=== PATIENT | female | born 1950 | race Caucasian/White ===

== ENCOUNTER → 2018-07-12 09:52 | Outpatient (CLI) | payer MEDICARE, BC, SELFPAY ==
--- NOTE | 2018-07-12 09:58 | BI_ITS ---
MAMMOGRAPHY - BILATERAL SCREENING REASON FOR EXAM: Female, 67 years old. Routine annual screening examination. PERTINENT HISTORY: Grandmother with breast cancer. Aunts with breast cancer. History of bilateral breast reduction. TECHNIQUE: Digital bilateral breast alondra (3D mammographic acquisition) in the CC and MLO projections. 2-D mediolateral oblique (MLO) and craniocaudad (CC) views of both breasts were obtained. CAD: Full Field Digital Mammography with Computer Added Detection was performed. COMPARISON: Comparison is made with prior study dated September 02, 2016 and February 04, 2014. FINDINGS: Breast Composition: There are scattered areas of fibroglandular density. There are no dominant masses or suspicious calcifications. Stable appearance of the calcified nodular densities in the retroareolar region of the right breast. Stable appearance of the bilateral axillary lymph nodes. No other significant abnormalities are identified. There has been no significant change since the prior study. BI/SCREENING MAMM (CAD), BILAT IMPRESSION: Stable bilateral screening mammogram. Yearly follow-up mammogram recommended. (A) ASSESSMENT CATEGORY: BIRADS Category 2: Benign. A letter regarding these results will be sent to the patient by the facility within 30 days. Approximately 10% of breast cancers are not detected by mammography. A normal mammogram should not delay biopsy of a clinically suspicious abnormality. [id number] Electronically Signed: Tomer Boone MD at 13:54 EDT Tel [phone], Service support ,
== END ==
PROVIDERS: Family Provider Internal Medicine; PCP Internal Medicine; Referring Provider Obstetrics & Gynecology; Visit Provider Obstetrics & Gynecology
DX: Z12.31 Encounter for screening mammogram for malignant neoplasm of breast (principal)
CPT/HCPCS: 77063; 77067

== ENCOUNTER 2019-02-04 16:30 | Outpatient (RCR) | payer MEDICARE, BC, SELFPAY ==
--- NOTE | 2019-01-28 11:32 | HP.PTEVAL ---
Patient's Visit Information CRISTOBAL MCCLAIN is a 68 year old F referred to Physical Therapy by Zane Knutson with a diagnosis of vertigo. Date of Evaluation: 01/28/19 Physical Therapist: Coleman Cardona, NOEMIT, OCS, CSCS - Visit Plan Frequency: 1-2x /Week Duration: 4-6 Weeks Plan: 1-2x/week for 4-6 as needed for progression of reintegration and adaptation ex and monitor MSQ as needed. - Subjective Findings: Got vertigo 3 weeks ago. Similar to what she had 21 years ago. That time got shots and pills and never another episode. This time was supposed to be watching grandson. While she was riding in car out of nowhere adn things started spinning. Went to [facility] did Catscan and checked heart and found no problems. Went to [facility] again that weekend as it came back. Vomitted quite a bit that time. stayed in hospital 2-3 days and lots of MRI, scans and blood tests adn all was good. Last two weeks is on vertigo meds. Gets a number of episodes a day now. Not feeling good most days. The only bad spinning she had was the Sunday before . Episodes last a few minutes. Feels off in between these episdoes making everything activity bar challenging. Sleeping lying down and normal. Avoids bending over. Retired. Spends time with grandchildren adn housework but hasn't been able to. Has trip to [place] planned February 11. - Objective Walks normal, transfers normal. c/s AROM is WNL adn without pain. - B hallpike and roll test. No nymptoms and no nystagmus. Oculomotor: VOR walking is chllenging with eyes ont arget but no symptoms. pursuit adn saccades are normal. Convergence show R eye not move in to midline real well. - skew eye deviation. VOR not symptomatic buit patient poor especially with L head movements at keeping eyes on target with any speed. Vertical is not bad. VOR x2 is not quality for patient. + L head thrust - Balance Scores Functional Gait Assessment Score: 28 % Disability: 6.6700 CATSIB Score (Max score 120 seconds): 108 - Goals Goal 1:: Patient back to 100% normal activities without dizzyness or fear. Goal Time Frame: 4-6 Weeks Goal 2:: OFF feeling is gone 100% Goal Time Frame: 4-6 Weeks Goal 3:: Pt ready to fly for February 11 Goal Time Frame: 4-6 Weeks Goal 4:: DHI less than 10% disability. Goal Time Frame: 4-6 Weeks - Rehabilitation Potential Physical Therapy Diagnosis: Unilateral vestibualr hypofunction. Rehabilitation Potential: Fair - Anticipated Interventions Patient/Client Instruction: Educate patient on: Condition, Plan of Care For the Purpose of:: To increase tolerance to activity/condition/position, To improve ability of physical actions for home/community/work/leisure Comment: adaptation, habituation, reintegration. For the Purpose of:: To increase tolerance to activity/condition/position Thank you for the opportunity to evaluate your patient. For Medicare and Medicare HMO plans, please review the plan of care and approve it. It will need to be FAXED BACK to us at [phone] for Medicare purposes. For Medicare only, by signing this I certify the plan of care. Please let me know if there are questions or concerns regarding this plan of care. Physician Signature: Date:
--- NOTE | 2019-04-22 13:42 | HP.PTDCNRP_ITS ---
HP - Discharge Summary (1) - Patient Information CRISTOBAL MCCLAIN was seen in my office for initial evaluation on 01/28/19. The following Plan of Care was established for this patient: Initial Frequency: 1-2x /Week Initial Duration: 4-6 Weeks - Anticipated Interventions Patient/Client Instruction: Educate patient on: Condition, Plan of Care For the Purpose of:: To increase tolerance to activity/condition/position, To improve ability of physical actions for home/community/work/leisure For the Purpose of:: To increase tolerance to activity/condition/position This patient was last seen in our office 02/04/19. Pertinent comments regarding their Physical therapy will appear below: Pt seen 3 visits and progressed nicely. She cancelled her last scheduled f/u and neglected to reschedule. At this point, it has been over two months, and I will discontinue due to nonattendance. At this point I will be discontinuing this patient from physical therapy. I w ould be happy to see this patient again in the future if found appropriate by the physician. Thank you! Coleman Cardona, DPT, OCS, CSCS
== END 2019-02-04 19:00 | disposition home or self-care (01) ==
LOC: PT 16:30
PROVIDERS: Family Provider Internal Medicine; PCP Internal Medicine; Referring Provider Internal Medicine; Visit Provider Internal Medicine
DX: R42 Dizziness and giddiness (principal)
CPT/HCPCS: 97110; 97162; 97530

== ENCOUNTER 2019-05-14 08:30 | Outpatient (RCR) | payer MEDICARE, BC, SELFPAY ==
--- NOTE | 2019-04-24 13:41 | HP.PTEVAL_ITS ---
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 Date of Evaluation: 04/24/19 Physical Therapist: Robe Waller, PT, Cert MDT, OCS - Visit Plan Frequency: 5x /Week Duration: 4 Weeks Plan: PT INTERVENTIONS INTIALLY MODLTIES PAIN ,PROGESS JUNI GRADED DLS,POSTURAL EX'S - Subjective Findings: This 68 y/o female presents to physical therapy with low back pain.Patient has had lumbar pain Grace no trauma ,just inscidous onset.There was a time in January patient moved 60 bags of mulch and h/o predisone 2 years. Patient has symmtrical lumbar pain,seen chiropractor helped. Patient had another bad episode pain seen DR victor/muscle relaxer which helped. Patient seen DR recommended percocet/muscle relaxers/predisone. Aggravate factors bening,lifting,getting out of bed in morning,standing ,walking when pain is at worse. Alleviating factors MEDS. Bowel/bladder -. Coughing/sneezing-. Patient pain affects sleeping. Denies parathesia/tingling.Location pain thoracic /lumbar no radicular symptoms. Patient pain affects housework tasks/ADLS. Patie nt pain affects QOL. SOCAIL: . VOCATION: retired - Pain Bilateral Back Pain Intensity (Out of 10): 5 Pain Intensity Range: 10 - Objective POSTURE: mild foward. PALAPTION: tender L-S /thoracic paraspinals. NEURO: intact ,reflexes L3-4,L4-5,L5-S1 2/. GAIT: reciprocal pattern. SYMMTRIES: align. LUMBAR ROM: flexion mod loss pain ,extesnion mod/severe loss pain ,side glides min /mod loss. MMT: quads/hams/hip/ankle 4/5. FLEXABLITY: hams min tight - Special Tests L/S Slump test left side: Positive L/S Slump test right side: Positive L/S Left Straight Leg Raise: Negative L/S Right Straight Leg Raise: Negative Lumbar Standing: Flexion - Mechanical Response: No effect Lumbar Standing: Flexion - Symptoms During Testing: Increases Lumbar Standing: Flexion - Symptoms After Testing: Worse Lumbar Standing: Extension - Symptoms During Testing: No effect Lumbar Standing: Extension - Symptoms After Testing: Worse Lumbar Standing: Right Side Glides - Mechanical Response: No effect Lumbar Standing: Right Side [place] - Symptoms During Testing: No effect Lumbar Standing: Right Side [place] - Symptoms After Testing: No effect Lumbar Standing: Left Side [place] - Mechanical Response: No effect Lumbar Standing: Left Side [place] - Symptoms During Testing: No effect Lumbar Standing: Left Side [place] - Symptoms After Testing: No effect - Goals Goal 1:: Patient to be Independant with HEP. Goal Time Frame: 2-4 Weeks Goal 2:: Patient to improve posture for ADLS with less pain Goal Time Frame: 2-4 Weeks Goal 3:: Patient to decrease lumbar pain by 50% or greater to improve function. Goal Time Frame: 2-4 Weeks Goal 4:: Patient to improve lumbar ROM for function of recovery Goal Time Frame: 2-4 Weeks Goal 5:: Patient to increase back owsestry score by 5 points to improve QOL. Goal Time Frame: 2-4 Weeks - Rehabilitation Potential Physical Therapy Diagnosis: This patient has severe lumbar pain with spasms with movement ,with poor ROM lumbar spine with ROM,decrease strength impairs function with ADLS' and housework tasks. Pateint may need further diagnostics if pateint continues. Rehabilitation Potential: Good - Anticipated Interventions Patient/Client Instruction: Educate patient on: Condition, Plan of Care For the Purpose of:: To decrease pain, To increase ROM, To improve muscle performance and motor function, To improve ability to perform ADL's, To increase tolerance to activity/condition/position, To improve ability of physical actions for home/community/work/leisure, To improve health of tissue, To decrease soft tissue restriction, To increase flexibility/ROM, To improve ability to perform tasks related to life management Therapeutic Exercise to Include: Strength training, Body mechanics, Postural training, Flexibilty training, Dynamic Lumbar Stabilization For the Purpose of:: To decrease pain, To increase ROM, To increase tolerance to activity/condition/position, To improve ability of physical actions for home/community/work/leisure, To improve health of tissue, To decrease soft tissue restriction, To improve ability to perform tasks related to life managem ent TENS: Yes IF ES: Yes Cryotherapy (ice pack, ice massage): Yes Thermo therapy (hot pack): Yes Ultrasound (thermal/non thermal): Yes For the Purpose of:: To decrease pain, To increase ROM, To improve muscle performance and motor function, To increase tolerance to activity/condition/position, To improve ability of physical actions for home/community/work/leisure, To improve health of tissue, To decrease soft tissue restriction, To increase flexibility/ROM, To improve ability to perform tasks related to life management Thank you for the opportunity to evaluate your patient. For Medicare and Medicare HMO plans, please review the plan of care and approve it. It will need to be FAXED BACK to us at [phone] for Medicare purposes. For Medicare only, by signing this I certify the plan of care. Please let me know if there are questions or concerns regarding this plan of care. Physician Signature: Date:
--- NOTE | 2019-05-20 17:51 | HP.PTDCSUM ---
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 Discharge Date: 05/20/19 Please see the following information for a summary of their discharge status. - Subjective Subjective: Pain is always worse in the morning back left side - Pain Bilateral Back Pain Intensity (Out of 10): 5 - Objective Objective/Function: Dawson tx well responded well with modalties less pain low back region - Goals Goal 1:: Patient to be Independant with HEP. Goal 2:: Patient to improve posture for ADLS with less pain Goal 3:: Patient to decrease lumbar pain by 50% or greater to improve function. Goal 4:: Patient to improve lumbar ROM for function of recovery Goal 5:: Patient to increase back owsestry score by 5 points to improve QOL. - Plan Plan: Pt called adn saw natural resources specialist who stated PT would not help as she either has infection or bone on bone bakck. She got bloodwork adn a back brace which she is to wear for 6 months. may need surgery. Will discharge this chart at patients request. Aquatic therapy may be helpful in the future and should be considered when appropriate. Pt will see natural resources specialist again next week to get next step after blood work. - D/C Information Discharge Comments: See above plan Discharge at patient request due to seeing natural resources specialist. If there are questions or concerns regarding this patient's physical therapy, please feel free to call me at [phone]. Thank you for the referral of this patient. Sincerely, Coleman Cardona, DPT, OCS, CSCS
== END 2019-05-14 19:00 | disposition home or self-care (01) ==
LOC: PT 08:30
PROVIDERS: Family Provider Internal Medicine; PCP Internal Medicine; Referring Provider Internal Medicine; Visit Provider Internal Medicine
DX: M54.5 Low back pain (principal); M54.10 Radiculopathy, site unspecified; M47.816 Spondylosis without myelopathy or radiculopathy, lumbar region; M51.36 Other intervertebral disc degeneration, lumbar region
CPT/HCPCS: 97014; 97035; 97162; G0283

== ENCOUNTER → 2019-07-24 09:59 | Outpatient (CLI) | payer MEDICARE, BC, SELFPAY ==
--- NOTE | 2019-07-24 10:01 | BI_ITS ---
MAMMOGRAPHY - BILATERAL SCREENING REASON FOR EXAM: Female, 68 years old. Routine annual screening examination. PERTINENT HISTORY: Grandmother with breast cancer. Aunts with breast cancer. History of prior bilateral breast reduction surgery. TECHNIQUE: Digital bilateral breast tanner (3D mammographic acquisition) in the CC and MLO projections. 2-D mediolateral oblique (MLO) and craniocaudad (CC) views of both breasts were obtained. CAD: Full Field Digital Mammography with Computer Added Detection was performed. COMPARISON: Comparison is made with prior study dated July 12, 2018 and September 02, 2016. FINDINGS: Breast Composition: There are scattered areas of fibroglandular density. There are no dominant masses or suspicious calcifications. Stable 2 calcified nodules in the retroareolar region of the right breast. Stable benign-appearing bilateral axillary lymph nodes. No other significant abnormalities are identified. There has been no significant change since the prior study. BI/SCREEN MAMM (CAD) W/TANNER BILAT IMPRESSION: Stable bilateral screening mammogram. Yearly follow-up mammogram recommended. (A) ASSESSMENT CATEGORY: BIRADS Category 2: Benign. A letter regarding these results will be sent to the patient by the facility within 30 days. Approximately 10% of breast cancers are not detected by mammography. A normal mammogram should not delay biopsy of a clinically suspicious abnormality. [id number] Electronically Signed: Tomer Boone, at 10:57 EDT , Service support ,
== END ==
PROVIDERS: Family Provider Internal Medicine; PCP Internal Medicine; Referring Provider Obstetrics & Gynecology; Visit Provider Obstetrics & Gynecology
DX: Z12.31 Encounter for screening mammogram for malignant neoplasm of breast (principal); Z80.3 Family history of malignant neoplasm of breast
CPT/HCPCS: 77063; 77067

== ENCOUNTER 2020-08-09 10:00 | Outpatient (RCR) | payer MEDICARE, BC, SELFPAY ==
--- NOTE | 2020-06-08 10:51 | HP.PTEVAL ---
Patient's Visit Information CRISTOBAL MCCLAIN is a 69 year old F referred to Physical Therapy by DREW AVILES with a diagnosis of LOW BACK PAIN. Date of Evaluation: 06/08/20 Physical Therapist: Keila Chamorro, PT, Cert MDT - Visit Plan Frequency: 2-3x /Week Duration: 4-6 Weeks Plan: AQUATIC THERAPY FOR PAIN RELEIF, POSTURE CORRECTION/STRENGTHENING, INSTRUCTION IN APPROPRIATE BODY MECHANICS AND ACTIVITY MODIFICATIONS. DLS STARTING WITH A NEUTRAL SPINE PROGRESSING ROM TOLERATED. JET LE ROM, STRETCHING AND STRENGTHENING. HEP INSTRUCTION. - Subjective Work/Leisure: RETIRED FROM [employer]. Disability: YES - FOR BLOOD CLOTS IN LUNGS. Present symptoms: JET LOW BACK PAIN. PATIENT DENIES JET LE SX'S. Present since: ABOUT A YEAR AGO. Pain Scale: WORST 10/10, LEAST 1/10. Currently: /10. Commenced as a result of: NO APPARENT REASON. Symptoms at onset: BACK. Worse: STANDING, PROLONGED SITTING, BEING IN A CAR, WALKING. Better: ICE, GABAPENTINC, SITTING WITH ICE, LYING DOWN AT TIMES. Disturbed sleep: NO. Previous history/Previous treatment: SURGICAL CONSULT, PAIN MGMT - JEANNETTE'S, CHIROPRACTOR, MEDICATIONS. NO PT. NO SURGERY. PATIENT REPORTS SURGERY IS NOT AN OPTION. LAST JEANNETTE WAS ABOUT 2 WEEKS AGO - IT HELPS AND THEN AGAIN IT DOESN'T. SOME DAYS VERY LITTLE PAIN AND SOME DAYS SEVERE PAIN. HAS NOT BEEN TO A CHIROPRACTOR FOR ABOUT 2 YEARS. Coughing/sneezing/straining: POSITIVE. Gait: PATIENT REPORTS PRESSURE AND STRAIN IN HER BACK WITH WALKING AND DISTANCE LIMITED. Difficulty initiating urinatin: NO. Accidents: NO. Unexplained weight loss: NO. Imaging: LAST YEAR MRI SHOWED AGGRESSIVE DEGENERATION OF THE DISCS PER PATIENT REPORT. PMH: NIDDM, ACID REFLUX, SLEEP APNEA, HTN, ANXIETY, HYPOTHYROIDISM, LOW B12, ALLERGIES, LOW MAGNESIUM. - Objective Sitting/Standing Posture: POOR. DECREASED LORDOSIS. NO RELEVANT LATERAL SHIFT. Active Correction of posture: WORSE - PULLS IN BACK. Other Observations: INDEP GAIT INTO PT WITHOUT ANY ASSISTIVE DEVICES OR LOB BUT DECREASED CADANCE. POOR STANDING TOLERANCE. INDEP TRANSFER SIT TO STAND WITH UE ON THIGHS. Motor deficit: MMT'ING IS PAIN LIMITED. PATIENT LE STRENGTH IS GROSSLY 4/5 EXCEPT HIPS 3 TO 3+/5. Sensory deficit: JET LE LIGHT TOUCH SENSATION APPEARS INTACT AND SYMMETRICAL. ROM deficit: TIGHT JET LE HS'S AND GASTROC SOLEUS COMPLEX'S. Reflexes: 2/3 JET LE'S. Dural Signs: POSITIVE JET LE'S. Lumbar mvmt loss: flex - MIN - PATIENT REPORTS BENDING USING CAUSES A LOT OF CRACKING IN HER BACK. ext - CARYN - INCREASES LOW BACK PAIN. R SG - CARYN. L SG - CARYN. PATIENT REPORTS INCREASED LBP WITH LUMBAR ROM TESTING ALL PLANES. Core strength: POOR. Palpation: TENDERNESS WITH LIGHT PALPATION OF ENTIRE LUMBOSACRAL REGIONS. TREATMENT: NEUROMUSCULAR REEDUCATION - RETRAINING OF MVMT AND POSTURE FOR SITTING, LYING AND STANDING ACTIVITIES. - Goals Goal 1:: DECREASE C/O LBP Goal Time Frame: 4-6 Weeks Goal 2:: IMPROVE PERSONAL CARE, LIFTING, WALKING, SITTING, STANDING, SOCIAL LIFE, TRAVEL AND HOMEMAKING FUNCTION. Goal Time Frame: 4-6 Weeks Goal 3:: INSTRUCT IN PROPHYLAXIS Goal Time Frame: 4-6 Weeks - Anticipated Interventions Patient/Client Instruction: Educate patient on: Condition, Plan of Care, Risk Factors, Benefits of Fitness Program For the Purpose of:: To improve self management Therapeutic Exercise to Include: Strength training, Endurance training, Body mechanics, Postural training, Flexibilty training, Gait and locomotor training, Neuromotor development, In an aquatic setting, Dynamic Lumbar Stabilization For the Purpose of:: To decrease pain, To decrease swelling/inflammation, To increase ROM, To improve muscle performance and motor function, To increase tolerance to activity/condition/position, To improve ability of physical actions for home/community/work/leisure, To improve gait and locomotor functions Thank you for the opportunity to evaluate your patient. For Medicare and Medicare HMO plans, please review the plan of care and approve it. It will need to be FAXED BACK to us at [phone] for Medicare purposes. For Medicare only, by signing this I certify the plan of care. Please let me know if there are questions or concerns regarding this plan of care. Physician Signature: Date:
--- NOTE | 2020-07-07 14:33 | HP.PTREVAL_ITS ---
DREW AVILES, It has been my pleasure to treat CRISTOBAL MCCLAIN over the last 10 visits for LOW BACK PAIN. Please see the progress note below for an update on the physical therapy plan of care! Subjective: PATIENT REPORTS SHE DOESN'T HAVE MUCH PAIN ON A DAILY BASIS NOW. STATES LESS SEVERE BAD DAYS OVER-ALL. STATES THE SHOT DID NOT WORK AND SHE IS G OING TO CALL THEM. STATES SHE REALLY DOESN'T WANT HER NERVES BURNT THOUGH. 8- 9/10 LOW BACK PAIN THIS MORNING. Objective/Function: PATIENT WAS SEEN TODAY FOR RE-ASSESSMENT OF PROGRESS TOWARD THE SET PT GOALS AND THE NEED FOR FURTHER PHYSICAL THERAPY VS READINESS FOR DISCHARGE. LE STRENGTH IS IMPROVING AND PATIENT IS REPORTING DECRASED PAIN. UPON EXAM TODAY: Motor deficit: JET LE STRENGTH IS GROSSLY 4-5/5 WITH MMT'ING. Sensory deficit: JET LE LIGHT TOUCH SENSATION APPEARS INTACT AND SYMMETRICAL. ROM deficit: MILD JET LE HS AND GASTROC SOLEUS COMPLEX TIGHTNESS. Dural Signs: POSITIVE JET LE'S. Lumbar mvmt loss: flex - NIL - NE. ext - CARYN - MIDLY INCREASES LOW BACK PAIN. R SG - CARYN - INCREASES LBP. L SG - MOD. Core strength: POOR. Palpation: TENDERNESS WITH LIGHT PALPATION OF ENTIRE LUMBOSACRAL REGIONS. Plan Plan: RECOMMEND CONTINUED AQUATIC THERAPY BASED ON PROGRESS MADE AND ROOM FOR FUTHER IMPROVEMENT. PATIENT IS RELUCTANT TO TRANSITION TO LAND AT THIS TIME AND THIS PT IS AGREEABLE. AQUATIC THERAPY FOR PAIN RELEIF, POSTURE CORRECTION/STRENGTHENING, INSTRUCTION IN APPROPRIATE BODY MECHANICS AND ACTIVITY MODIFICATIONS. DLS STARTING WITH A NEUTRAL SPINE PROGRESSING ROM TOLERATED. JET LE ROM, STRETCHING AND STRENGTHENING. HEP INSTRUCTION. Goals Goal 1:: DECREASE C/O LBP Goal Time Frame: 4-6 Weeks Goal Progress: Progressing Goal 2:: IMPROVE PERSONAL CARE, LIFTING, WALKING, SITTING, STANDING, SOCIAL LIFE, TRAVEL AND HOMEMAKING FUNCTION. Goal Time Frame: 4-6 Weeks Goal Progress: Progressing Goal 3:: INSTRUCT IN PROPHYLAXIS Goal Time Frame: 4-6 Weeks Goal Progress: Progressing Anticipated Interventions Patient/Client Instruction: Educate patient on: Condition, Plan of Care, Risk Factors, Benefits of Fitness Program For the Purpose of:: To improve self management Therapeutic Exercise to Include: Strength training, Endurance training, Body mechanics, Postural training, Flexibilty training, Gait and locomotor training, Neuromotor development, In an aquatic setting, Dynamic Lumbar Stabilization For the Purpose of:: To decrease pain, To decrease swelling/inflammation, To increase ROM, To improve muscle performance and motor function, To increase tolerance to activity/condition/position, To improve ability of physical actions for home/community/work/leisure, To improve gait and locomotor functions Please do not hesitate to contact me at [phone] by phone or if you have questions or concerns regarding this new plan of care! Sincerely, Keila Chamorro, PT, Cert MDT
--- NOTE | 2020-08-09 10:37 | HP.PTREVAL ---
DREW AVILES, It has been my pleasure to treat CRISTOBAL MCCLAIN over the last 20 visits for LOW BACK PAIN. Please see the progress note below for an update on the physical therapy plan of care! Subjective: PATIENT REPORTS SHE GETS RELIEF WHEN SHE IS IN THE DEEP WATER. PATIENT REPORTS THE POOL IS A TOOL TO HELP DECREASE HER CASTILLO DEPENDING ON WHAT EX'S SHE DOES. PATIENT REPORTS THAT BETWEEN WATER SESSION SHE HAS INCREASED FLEXABILITY COMPARED TO WHEN SHE DOESN'T DO THE WATER SESSIONS. PATIENT REPORTS SHE WOULD LIKE TO TRY TO TRANSITION TO SOME EX'S ON THE MACHINES BUT SHE ISN'T SURE HOW SHE WILL DO. ALSO REPORTS SHE STILL NEEDS THE WATER THERAPIST TO HELP HER USE PROPER TECHNIQUE WITH SOME OF THE CURRENT EX'S AND TO PROGRESS. Objective/Function: PATIENT WAS SEEN TODAY FOR RE-ASSESSMENT OF PROGRESS TOWARD THE SET PT GOALS AND THE NEED FOR FURTHER PHYSICAL THERAPY VS READINESS FOR DISCHARGE. LE STRENGTH IS IMPROVING AND PATIENT IS REPORTING DECRASED PAIN. UPON EXAM TODAY: Motor deficit: JET LE STRENGTH IS GROSSLY 5/5 WITH MMT'ING EXCEPT HIPS 4/5. Sensory deficit: JET LE LIGHT TOUCH SENSATION APPEARS INTACT AND SYMMETRICAL. ROM deficit: MILD JET LE HS AND GASTROC SOLEUS COMPLEX TIGHTNESS. Dural Signs: NEGATIVE JET LE'S. Lumbar mvmt loss: flex - NIL. ext - CARYN - INCREASES LOW BACK PAIN. R SG - MOD. L SG - MOD. Core strength: POOR. Palpation: PATIENT IS NOT TENDER WITH PALPATION TODAY. Plan Plan: CONTINUE PT 2X'S/WK IN THE POOL AND 1X/WK ON LAND X 2 WEEKS THEN 1X/WK IN THE POOL AND 2X'S/WK ON LAND X 2 WEEKS X 10 MORE VISITS TOTAL THEN RE-CHECK. CONT PER ORIG POC WORKING TOWARD SAME GOALS. PATIENT AGREEABLE. Goals Goal 1:: DECREASE C/O LBP Goal Time Frame: 4-6 Weeks Goal Progress: Progressing Goal 2:: IMPROVE PERSONAL CARE, LIFTING, WALKING, SITTING, STANDING, SOCIAL LIFE, TRAVEL AND HOMEMAKING FUNCTION. Goal Time Frame: 4-6 Weeks Goal Progress: Progressing Goal 3:: INSTRUCT IN PROPHYLAXIS Goal Time Frame: 4-6 Weeks Goal Progress: Progressing Anticipated Interventions Patient/Client Instruction: Educate patient on: Condition, Plan of Care, Risk Factors, Benefits of Fitness Program For the Purpose of:: To improve self management Therapeutic Exercise to Include: Strength training, Endurance training, Body mechanics, Postural training, Flexibilty training, Gait and locomotor training, Neuromotor development, In an aquatic setting, Dynamic Lumbar Stabilization For the Purpose of:: To decrease pain, To decrease swelling/inflammation, To increase ROM, To improve muscle performance and motor function, To increase tolerance to activity/condition/position, To improve ability of physical actions for home/community/work/leisure, To improve gait and locomotor functions Please do not hesitate to contact me at [phone] by phone or if you have questions or concerns regarding this new plan of care! Sincerely, Keila Chamorro, PT, Cert MDT
--- NOTE | 2020-08-17 13:59 | HP.PT.NRP ---
CRISTOBAL MCCLAIN was seen in my office for initial evaluation on 06/08/20. The following Plan of Care was established for this patient: Initial Frequency: 2-3x /Week Initial Duration: 4-6 Weeks Patient/Client Instruction: Educate patient on: Condition, Plan of Care, Risk Factors, Benefits of Fitness Program For the Purpose of:: To improve self management Therapeutic Exercise to Include: Strength training, Endurance training, Body mechanics, Postural training, Flexibilty training, Gait and locomotor training, Neuromotor development, In an aquatic setting, Dynamic Lumbar Stabilization For the Purpose of:: To decrease pain, To decrease swelling/inflammation, To increase ROM, To improve muscle performance and motor function, To increase tolerance to activity/condition/position, To improve ability of physical actions for home/community/work/leisure, To improve gait and locomotor functions This patient was last seen in our office . Pertinent comments regarding their Physical therapy will appear below: This patient has not returned to Physical Therapy and is appropriate to return to MD for further follow-up as needed. I rec'd a note stating patient cancelled all remaining hilda'ts due to COVID #'s. At this point I will be discontinuing this patient from physical therapy. I would be happy to see this patient again in the future if found appropriate by the physician. Thank you! Keila Chamorro, PT, Cert MDT
== END 2020-08-09 19:00 | disposition home or self-care (01) ==
LOC: PT 10:00
PROVIDERS: PCP Internal Medicine; Referring Provider Internal Medicine
DX: M54.5 Low back pain (principal)
CPT/HCPCS: 97112; 97113; 97162; 97164

== ENCOUNTER → 2020-09-10 07:05 | Outpatient (CLI) | payer MEDICARE, BC, SELFPAY ==
--- NOTE | 2020-09-10 07:07 | BI_ITS ---
MAMMOGRAPHY - BILATERAL SCREENING REASON FOR EXAM: Female, 70 years old. Routine annual screening examination. PERTINENT HISTORY: Grandmother with breast cancer. Aunt with breast cancer. Prior bilateral breast reduction surgery. TECHNIQUE: Digital bilateral breast tanner (3D mammographic acquisition) in the CC and MLO projections. 2-D mediolateral oblique (MLO) and craniocaudad (CC) views of both breasts were obtained. CAD: Full Field Digital Mammography with Computer Added Detection was performed. COMPARISON: Comparison is made with prior study dated 07/24/2019 and 07/12/2018. FINDINGS: Breast Composition: There are scattered areas of fibroglandular density. There are no dominant masses or suspicious calcifications. Stable benign-appearing bilateral axillary lymph nodes. No other significant abnormalities are identified. There has been no significant change since the prior study. BI/SCREEN MAMM (CAD) W/TANNER BILAT IMPRESSION: Stable bilateral screening mammogram. Yearly follow-up mammogram recommended. (A) ASSESSMENT CATEGORY: BIRADS Category 2: Benign. A letter regarding these results will be sent to the patient by the facility within 30 days. Approximately 10% of breast cancers are not detected by mammography. A normal mammogram should not delay biopsy of a clinically suspicious abnormality. [id number] Electronically Signed: Tomer Boone, at 10:06 EST , Service support ,
== END ==
PROVIDERS: PCP Internal Medicine; Referring Provider Student in an Organized Health Care Education/Training Program; Visit Provider Student in an Organized Health Care Education/Training Program
DX: Z12.31 Encounter for screening mammogram for malignant neoplasm of breast (principal)
CPT/HCPCS: 77063; 77067

== ENCOUNTER → 2020-09-16 08:25 | Outpatient (CLI) | payer MEDICARE, BC, SELFPAY ==
--- NOTE | 2020-09-16 08:30 | BD_ITS ---
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 DELIVERY SPECIALIST -- CURRENTLY ON HRT -- DIABETIC- TAKES MEDICATION -- TAKES THYROID MEDICATION -- TAKES DIURETIC IN BP MED -- TAKES GABAPENTIN -- TAKES VITAMIN D -- DOES LITTLE EXERCISE -- HX OF R FOOT FX -- AMY OF 1 INCH TECHNIQUE: Bone Mineral Density (BMD) measurements of lumbar spine and bilateral hips were obtained. COMPARISON: Comparison is made with prior study dated 05/28/2007. FINDINGS: Lumbar Spine (L1-L4): g/cm2 (1.120) / T-score (-0.7) / Z-score (1.0) Findings are suggestive of normal bone density with a low fracture risk. Left Femur Total: g/cm2 (1.004) / T-score (0.0) / Z-score (1.5) Left Femoral Neck: g/cm2 (0.839) / T-score (-1.4) / Z-score (0.3) Right Femur Total: g/cm2 (1.019) / T-score (0.1) / Z-score (1.7) Right Femoral Neck: g/cm2 (0.878) / T-score (-1.2) / Z-score (0.6) The T-Scores on the most recent prior examination were: Lumbar Spine (L1-L4): There has been improvement of bone density since the previous examination. Left Femur Total: which represents a worsening of 11.3%. BD/Dexa Bone Density Study IMPRESSION: The patient is considered osteopenic as outlined below according to World Gonzalez Organization (WHO) criteria with a low fracture risk. There has been improvement of bone density since the previous examination. Reference Information: The T-score is the number of standard deviations above or below the standard which is normal for young adults at their peak bone mineral density. The World Health Organization (WHO) interprets the T-scores as follows: Above -1 Normal bone density Between -1 and -2.5 Osteopenia Equal to / or below -2.5 Osteoporosis As a practical clinical guideline, osteopenia may be graded as follows: Mild -1 through -1.5 Moderate -1.6 through -2.0 Severe -2.1 through -2.4 The Z-score is the number of standard deviations above or below age-matched controls. A Z-score of less than -1.5 would be considered abnormal. References: 1. NIH Osteoporosis and Related Bone Diseases www osteo.org 2. International Society for Clinical Densitometry www iscd.org 3. National Osteoporosis Foundation www nof.org Electronically Signed: Tomer Boone, at 12:21 EST , Service support ,
== END ==
PROVIDERS: PCP Internal Medicine; Referring Provider Student in an Organized Health Care Education/Training Program; Visit Provider Student in an Organized Health Care Education/Training Program
DX: Z78.0 Asymptomatic menopausal state (principal)
CPT/HCPCS: 77080

== ENCOUNTER 2021-03-02 14:05 | Emergency (ER) | payer MEDICARE, BC, SELFPAY ==
[2021-03-02 14:06] VITALS: BP 176/89; PULSE 83; RESP 15; TEMP 36.4; O2SAT 98; BMI 36.2
--- NOTE | 2021-03-02 14:21 | EKG12_ITS ---
Test Reason : HTN Blood Pressure : / mmHG Vent. Rate : 083 BPM Atrial Rate : 083 BPM P-R Int : 134 ms QRS Dur : 096 ms QT Int : 408 ms P-R-T Axes : 053 049 070 degrees QTc Int : 479 ms Normal sinus rhythm Normal ECG Confirmed by WALTER NAYLOR, OLIVE ([id number]), story editor MARIN PARKER ([id number]) on 03/03/2021 12:53:52 PM Referred By: ARSALAN/TIM Confirmed By:BUTCH WATSON MD
--- NOTE | 2021-03-02 14:21 | CT_ITS ---
STUDY: CT BRAIN WITHOUT CONTRAST REASON FOR EXAM: Female, 70 years old. Headache, HTN RADIATION DOSAGE (If Supplied By Facility): CTDIvol = ( 44.99 ) mGy, DLP = ( 762.36 ) mGycm TECHNIQUE: Transaxial CT imaging of the brain was performed without administration of intravenous contrast material. Individualized dose optimization techniques were used for this CT. COMPARISON: Comparison is made with prior study to 06/25/2012. FINDINGS: Normal soft tissue structures. Normal calvarium. There is mild cerebral atrophy with widening of the extra-axial spaces and ventricular dilatation. Normal white matter tracts of the cerebral hemispheres. Small lacunae in both basal ganglia. These are new as compared to prior examination. Normal brainstem. Normal cerebellum. There is no intracranial hemorrhage. There are no findings of an acute ischemic infarction. Normal visualized paranasal sinuses. CT/Brain/Head without Contrast IMPRESSION: Chronic involutional changes of the brain. Small lacunar infarcts in the basal ganglia bilaterally. These are new as compared to prior examination. Electronically Signed: Tomer Boone MD at 15:33 EDT , Service support ,
--- NOTE | 2021-03-02 14:23 | EDS_ITS ---
HPI History of Present Illness Chief Complaint: Hypertension Detail of Chief Complaint: Headache Informant: patient Onset/Context/Timing Onset: Days (4 days) Context: Gradual Onset Timing: Waxes and wanes Current Severity: Moderate Maximum Severity: Moderate Narrative Narrative: Patient presents secondary to headache and hypertension. She had what she felt was a sinus headache for the past 4 days. She did not note improvement with Tylenol and try to make an appointment with her doctor today. There were no appointments available and she was advised to go to urgent care. While at urgent care her blood pressure was noted to be 230s over 120s. She was sent to the emergency room. Patient does note that she had 2 recent admissions to [facility] with UTI and sepsis where she was significantly hypotensive. This morning she got her medications out and was writing out her list and actually realized that she is taking a full tab of her blood pressure medication when it was originally written for a half tab at a time. In spite of this her blood pressure is still excessively high today. Patient describes headache across her forehead and to the left occiput. She does describe mild nausea with light sensitivity. [facility] Medical History (Updated 03/02/21 @ 16:[address] Elicia Collado MD) CPAP (continuous positive airway pressure) dependence Diabetes GERD (gastroesophageal reflux disease) Hypertension Sleep apnea Allergy/AdvReac Type Severity Reaction Status Date / Time latex Allergy Itching Verified 03/02/21 14:09 Penicillins [PCN] Allergy Hives Verified 03/02/21 14:09 Surgical History (Updated 03/02/21 @ 14:59 by Aicha Mobley) History of cataract surgery History of cholecystectomy Hx of breast augmentation Hx of carpal tunnel repair Hx of hemorrhoidectomy Hx of tonsillectomy Social History Smoking Status: Never smoker ROS ROS ED Constitutional Constitutional ED: Denies chills or fever(s) Eyes Eyes: Reports other Details: Blurry vision secondary to recent cataract surgery. ENT ENT ED: Denies sore throat Cardiovascular Cardiovascular: Denies chest pain Respiratory/Chest Respiratory/Chest: Denies cough or dyspnea Gastrointestinal Gastrointestinal: Reports nausea; Denies abdominal pain, diarrhea or vomiting Genitourinary Genitourinary ED: Denies dysuria Musculoskeletal Musculoskeletal: Denies back pain Integumentary Denies rash Neurologic Neurologic: Reports headache(s); Denies weakness Psychiatric Psychiatric: Denies anxiety or depression Endocrine Endocrinology: Denies polydipsia or polyuria Allergic/Immunologic Allergic/Immunologic ED: Denies urticaria EXAM Physical Exam Const Vital Signs: 03/02/21 14:06 03/02/21 14:57 03/02/21 15:38 Temperature 97.6 F L Temperature Source Temporal Pulse Rate 83 Respiratory Rate 15 Respiratory Effort Normal Non-Labored Blood Pressure 176/89 H 186/88 H Blood Pressure Mean 118 120 Pulse Ox 98 Oxygen Delivery Method Room Air 03/02/21 16:12 Temperature Temperature Source Pulse Rate 779 H Respiratory Rate Respiratory Effort Blood Pressure 176/87 H Blood Pressure Mean 116 Pulse Ox 96 Oxygen Delivery Method Positive well nourished and well developed General Appearance ED: well developed HEENT Reports normocephalic and head/scalp atraumatic Eyes EOMs intact bilaterally Neck supple Chest Wall inspection of chest normal and palpation of chest normal Resp normal respiratory effort and clear to auscultation bilaterally Cardio regular rate and regular rhythm GI normal to inspection, nondistended, normoactive bowel sounds Palpation: soft Extremity normal to inspection Neuro oriented x3 and no sensory deficits noted Sensorium / Orientation: alert Motor Exam: strength 5/5 throughout Psych mental status grossly normal Skin no rashes or lesions noted MDM MDM MDM Narrative Medical decision making narrative: Patient was given Toradol, Reglan, Benadryl for headache. Lab work, urinalysis, head CT are obtained. EKG is obtained. Lab Data Attestation: I reviewed the patient's lab results. Labs: Laboratory Results - last 24 hr 03/02/21 03/02/21 03/02/21 14:40 14:40 15:38 WBC 11.3 H RBC 4.25 Hgb 11.3 L Hct 36.1 L MCV 84.9 MCH 26.6 L MCHC 31.3 L RDW Std Deviation 46.5 H RDW Coeff of Mariano 15.0 H Plt Count 385 MPV 10.8 Immature Gran % (Auto) 0.400 Neut % (Auto) 66.9 Lymph % (Auto) 23.2 [place] % (Auto) 6.4 Eos % (Auto) 2.7 Baso % (Auto) 0.4 Absolute Neuts (auto) 7.5 Absolute Lymphs (auto) 2.61 Nucleated RBC % 0 Sodium 141 Potassium 4.1 Chloride 106 Carbon Dioxide 28.0 Anion Gap 7 BUN 17 Creatinine 0.98 Estim Creat Clear Calc 41.04 Est GFR (MDRD) Af Amer 72 Est GFR (MDRD) Non-Af 59 L BUN/Creatinine Ratio 17.4 Glucose 110 H Calcium 9.1 Urine Color Straw Urine Clarity Clear Urine pH 6.0 Ur Specific [place] 1.010 Urine Protein 15 H Urine Glucose (UA) Normal Urine Ketones Negative Urine Occult Blood Negative Urine Nitrite Negative Urine Bilirubin Negative Urine Urobilinogen Normal Ur Leukocyte Esterase Negative Urine RBC 0 SEEN Urine WBC 0-5 SEEN Ur Squamous Epith Cells 0-5 SEEN Urine Bacteria 0 SEEN Urine Mucus 0 SEEN Radiography Diagnostic Testing: Radiology Impression Brain CT 03/02/21 14:21 IMPRESSION: Chronic involutional changes of the brain. Small lacunar infarcts in the basal ganglia bilaterally. These are new as compared to prior examination. Electronically Signed: Tomer Boone MD at 15:33 EDT , Service support , EKG Initial EKG: Attestation: I personally reviewed and interpreted this EKG as follows: Interpretation: Sinus Rhythm (Sinus at 83 with no acute ischemia.) Treatment and Re-Evaluation Comments:: On repeat evaluation headache is much improved. Blood pressure remains elevated in the 170s. I did speak with a doctor covering for her PCP in [place]. She asked that the patient go ahead and double her blood pressure medication and monitor her pressure couple times a day. Patient will be seen in the office within the next week for follow-up. This was explained to the patient and at bedside. She is comfortable with this plan. Discharge Plan Triage Chief Complaint: Hypertension ED Provider: Elicia Collado Dx/Rx/DC Orders Clinical Impression: Hypertension, Cephalgia Instructions: ED Hypertension, Established, ED, Migraine (Classical) Primary Care Provider: Zane Knutson Referrals: Zane Knutson MD [Primary Care Provider] - 3-5 Days Activity Restrictions/Additional Instructions: Please double your blood pressure medication that you are currently taking. Check your blood pressure a couple times a day and keep a journal of these values to review with your doctor. Your doctor will see you in follow-up either Sunday or Sunday. If you do not hear from their office tomorrow please call for an appointment. Disposition Disposition: Home, self care
[2021-03-02] MEDS: DiphenhydrAMINE 50 MG/ML Syringe 25 MG IV (14:49)
[2021-03-02] MEDS: Ketorolac 15 MG/ML Vial IV (14:52)
[2021-03-02 14:53] LABS: Absolute Lymphocyte Count 2.61 X10^3/uL (0.83-4.51); Absolute Neutrophil Count 7.5 X10^3/uL (2.0-7.7); Basophil# 0.05 X10^3/uL; Basophil% 0.4 % (0-1); Eosinophils% 2.7 % (0-5); Hematocrit 36.1 % (37-47); Hemoglobin 11.3 g/dL (12.0-15.0); Lymphocyte # 2.61 X10^3/ul (0.83-4.51); Lymphocyte % 23.2 % (19-41); Mean Corp Hgb Conc 31.3 g/dL (32-36); Mean Corpuscular Hgb 26.6 pg (27.0-32.0); Mean Corpuscular Volume 84.9 fL (81-99); Mean Platelet Vol. 10.8 fl (6.2-12.0); Monocyte# 0.72 X10^3/uL; Monocyte% 6.4 % (0-10); NRBC Flagged by Analyzer 0 % (0-5); Neutrophil # 7.52 X10^3/uL (2.7-7.7); Neutrophil % 66.9 % (47-70); Platelet Count 385 K/mm3 (150-450); RBC Distribution Width SD 46.5 fl (35.1-43.9); Red Blood Count 4.25 M/mm3 (4.2-5.4); White Blood Count 11.3 K/mm3 (4.4-11.0)
[2021-03-02] MEDS: Metoclopramide 10 MG/2 ML Vial IV (14:54)
[2021-03-02 15:16] LABS: Anion Gap 7 (5-15); BUN 17 mg/dL (7-18); BUN/Creat Ratio 17.4 RATIO (10-20); Calcium,Total 9.1 mg/dL (8.5-10.1); Chloride 106 mmol/L (98-107); Creatinine, Serum 0.98 mg/dL (0.55-1.02); EST Glomerular Filtration Rate 59 mL/min (>60); Est Glom Filt Rate - Afr Amer 72 mL/min (>60); Estimated Creatinine Clearance 41.04 ml/min; Glucose 110 mg/dL (74-106); Potassium 4.1 mmol/L (3.5-5.1); Sodium Level 141 mmol/L (136-145)
[2021-03-02 15:38] VITALS: BP 186/88
[2021-03-02 15:52] LABS: Bacteria 0 SEEN /hpf (None Seen); Mucous, Urine 0 SEEN /hpf (<or=2+); Red Blood Cells-Urine 0 SEEN /hpf (0-5)
[2021-03-02 16:02] LABS: Color, Urine Straw (Yellow); Glucose, Dipstick Normal (Normal); Ketone-Dipstick Negative (Negative); Leukocyte Esterase-Dipstick Negative /ul (Negative); Nitrite-Dipstick Negative (Negative); Occult Blood-Urine Negative /ul (Negative); Protein-Dipstick 15 mg/dl (Negative); Urine Bilirubin Dipstick Negative (Negative); Urine Clarity Clear (Clear); Urine Urobilinogen Normal (Normal)
[2021-03-02 16:12] VITALS: BP 176/87; PULSE 779; O2SAT 96
[2021-03-02 16:42] LABS: Squamous Epithelial Cells - UA 0-5 SEEN /hpf (5-10)
[2021-03-02 16:45] LABS: White Blood Cells 0-5 SEEN /hpf (0-5)
[2021-03-02 17:10] VITALS: BP 172/69
== END 2021-03-02 17:11 | disposition home or self-care (01) ==
PROVIDERS: Emergency Provider Emergency Medicine; PCP Internal Medicine
DX: I10 Essential (primary) hypertension (principal); R51.9 Headache, unspecified
CPT/HCPCS: 70450; 80048; 81001; 85025; 93005; 96374; 96375; 99284; J7030

== ENCOUNTER → 2021-08-01 10:33 | Outpatient (CLI) | payer MEDICARE, BC, SELFPAY ==
[2021-08-01 11:01] LABS: Absolute Lymphocyte Count 2.45 X10^3/uL (0.83-4.51); Basophil# 0.04 X10^3/uL; Basophil% 0.5 % (0-1); Eosinophil# 0.89 X10^3/uL; Eosinophils% 11.2 % (0-5); Hematocrit 32.3 % (37-47); Hemoglobin 10.3 g/dL (12.0-15.0); Lymphocyte # 2.45 X10^3/ul (0.83-4.51); Lymphocyte % 30.8 % (19-41); Mean Corp Hgb Conc 31.9 g/dL (32-36); Mean Corpuscular Hgb 26.4 pg (27.0-32.0); Mean Corpuscular Volume 82.8 fL (81-99); Mean Platelet Vol. 11.1 fl (6.2-12.0); Monocyte# 0.55 X10^3/uL; Monocyte% 6.9 % (0-10); NRBC Flagged by Analyzer 0 % (0-5); Neutrophil # 4.02 X10^3/uL (2.7-7.7); Neutrophil % 50.5 % (47-70); Platelet Count 294 K/mm3 (150-450); RBC Distribution Width CV 15.6 % (11.6-14.6); RBC Distribution Width SD 47.5 fl (35.1-43.9)
[2021-08-01 11:24] LABS: ALB/GLOB Ratio 0.9 RATIO (0.9-2.4); AST(SGOT) 12 U/L (15-37); Alanine Aminotransfer ALT/SGPT 12 U/L (13-56); Alkaline Phosphatase 102 U/L (45-117); Anion Gap 8 (5-15); BUN 11 mg/dL (7-18); BUN/Creat Ratio 10.2 RATIO (10-20); Calcium,Total 9.1 mg/dL (8.5-10.1); Chloride 106 mmol/L (98-107); Creatinine, Serum 1.08 mg/dL (0.55-1.02); EST Glomerular Filtration Rate 53 mL/min (>60); Est Glom Filt Rate - Afr Amer 64 mL/min (>60); Globulin 3.3 g/dL (2.2-4.2); Glucose 81 mg/dL (74-106); Potassium 4.2 mmol/L (3.5-5.1); Protein, Total 6.3 g/dL (6.4-8.2); Sodium Level 139 mmol/L (136-145)
[2021-08-01 11:29] LABS: Vancomycin, Trough Level 10.6 ug/mL (5.0-15.0)
== END ==
PROVIDERS: PCP Internal Medicine
DX: M46.44 Discitis, unspecified, thoracic region (principal); M47.816 Spondylosis without myelopathy or radiculopathy, lumbar region
CPT/HCPCS: 80053; 80202; 85025

== ENCOUNTER → 2021-08-08 10:44 | Outpatient (CLI) | payer MEDICARE, BC, SELFPAY ==
[2021-08-08 11:06] LABS: Absolute Lymphocyte Count 2.06 X10^3/uL (0.83-4.51); Absolute Neutrophil Count 4.9 X10^3/uL (2.0-7.7); Basophil# 0.05 X10^3/uL; Basophil% 0.6 % (0-1); Eosinophil# 0.92 X10^3/uL; Hematocrit 30.9 % (37-47); Hemoglobin 10.1 g/dL (12.0-15.0); Lymphocyte # 2.06 X10^3/ul (0.83-4.51); Lymphocyte % 24.6 % (19-41); Mean Corp Hgb Conc 32.7 g/dL (32-36); Mean Corpuscular Hgb 26.7 pg (27.0-32.0); Mean Corpuscular Volume 81.7 fL (81-99); Mean Platelet Vol. 10.9 fl (6.2-12.0); Monocyte% 4.8 % (0-10); NRBC Flagged by Analyzer 0 % (0-5); Neutrophil # 4.93 X10^3/uL (2.7-7.7); Neutrophil % 58.9 % (47-70); Platelet Count 301 K/mm3 (150-450); RBC Distribution Width CV 15.2 % (11.6-14.6); RBC Distribution Width SD 45.6 fl (35.1-43.9); Red Blood Count 3.78 M/mm3 (4.2-5.4); White Blood Count 8.4 K/mm3 (4.4-11.0)
[2021-08-08 11:31] LABS: ALB/GLOB Ratio 0.9 RATIO (0.9-2.4); AST(SGOT) 12 U/L (15-37); Alanine Aminotransfer ALT/SGPT 16 U/L (13-56); Albumin, Serum 2.8 g/dL (3.2-5.0); Alkaline Phosphatase 119 U/L (45-117); Anion Gap 6 (5-15); BUN 11 mg/dL (7-18); BUN/Creat Ratio 11.5 RATIO (10-20); Calcium,Total 8.9 mg/dL (8.5-10.1); Chloride 107 mmol/L (98-107); Creatinine, Serum 0.96 mg/dL (0.55-1.02); EST Glomerular Filtration Rate 61 mL/min (>60); Est Glom Filt Rate - Afr Amer 73 mL/min (>60); Globulin 3.2 g/dL (2.2-4.2); Glucose 158 mg/dL (74-106); Potassium 3.8 mmol/L (3.5-5.1); Sodium Level 141 mmol/L (136-145)
[2021-08-08 11:34] LABS: Vancomycin, Trough Level 10.1 ug/mL (5.0-15.0)
== END ==
PROVIDERS: PCP Internal Medicine
DX: M46.44 Discitis, unspecified, thoracic region (principal); M47.816 Spondylosis without myelopathy or radiculopathy, lumbar region
CPT/HCPCS: 80053; 80202; 85025

== ENCOUNTER → 2021-08-11 11:43 | Outpatient (CLI) | payer MEDICARE, BC, SELFPAY ==
[2021-08-11 12:08] LABS: Vancomycin, Trough Level 11.1 ug/mL (5.0-15.0)
== END ==
PROVIDERS: PCP Internal Medicine
DX: M46.44 Discitis, unspecified, thoracic region (principal); M47.816 Spondylosis without myelopathy or radiculopathy, lumbar region
CPT/HCPCS: 80202

== ENCOUNTER → 2021-08-15 10:39 | Outpatient (CLI) | payer MEDICARE, BC, SELFPAY ==
[2021-08-15 11:00] LABS: Absolute Lymphocyte Count 2.23 X10^3/uL (0.83-4.51); Basophil# 0.04 X10^3/uL; Basophil% 0.5 % (0-1); Eosinophil# 0.93 X10^3/uL; Eosinophils% 12.3 % (0-5); Hematocrit 32.1 % (37-47); Lymphocyte # 2.23 X10^3/ul (0.83-4.51); Lymphocyte % 29.4 % (19-41); Mean Corp Hgb Conc 31.2 g/dL (32-36); Mean Corpuscular Hgb 25.6 pg (27.0-32.0); Mean Corpuscular Volume 82.3 fL (81-99); Mean Platelet Vol. 11.3 fl (6.2-12.0); Monocyte# 0.39 X10^3/uL; Monocyte% 5.1 % (0-10); NRBC Flagged by Analyzer 0 % (0-5); Neutrophil # 3.97 X10^3/uL (2.7-7.7); Neutrophil % 52.4 % (47-70); Platelet Count 317 K/mm3 (150-450); RBC Distribution Width CV 15.3 % (11.6-14.6); RBC Distribution Width SD 46.2 fl (35.1-43.9); White Blood Count 7.6 K/mm3 (4.4-11.0)
[2021-08-15 11:24] LABS: ALB/GLOB Ratio 0.9 RATIO (0.9-2.4); AST(SGOT) 12 U/L (15-37); Alanine Aminotransfer ALT/SGPT 12 U/L (13-56); Albumin, Serum 2.9 g/dL (3.2-5.0); Alkaline Phosphatase 120 U/L (45-117); Anion Gap 5 (5-15); BUN 7 mg/dL (7-18); Calcium,Total 9.1 mg/dL (8.5-10.1); Chloride 109 mmol/L (98-107); Creatinine, Serum 0.78 mg/dL (0.55-1.02); EST Glomerular Filtration Rate 77 mL/min (>60); Est Glom Filt Rate - Afr Amer 93 mL/min (>60); Globulin 3.1 g/dL (2.2-4.2); Glucose 97 mg/dL (74-106); Potassium 3.8 mmol/L (3.5-5.1); Sodium Level 142 mmol/L (136-145); Vancomycin, Trough Level 10.4 ug/mL (5.0-15.0)
== END ==
PROVIDERS: PCP Internal Medicine
DX: M46.44 Discitis, unspecified, thoracic region (principal); M47.816 Spondylosis without myelopathy or radiculopathy, lumbar region
CPT/HCPCS: 80053; 80202; 85025

== ENCOUNTER → 2021-08-18 10:58 | Outpatient (CLI) | payer MEDICARE, BC, SELFPAY ==
[2021-08-18 11:40] LABS: Vancomycin, Trough Level 9.9 ug/mL (5.0-15.0)
== END ==
PROVIDERS: PCP Internal Medicine
DX: M46.44 Discitis, unspecified, thoracic region (principal); M47.816 Spondylosis without myelopathy or radiculopathy, lumbar region
CPT/HCPCS: 80202

== ENCOUNTER → 2021-08-22 10:46 | Outpatient (CLI) | payer MEDICARE, BC, SELFPAY ==
[2021-08-22 11:13] LABS: Absolute Lymphocyte Count 1.97 X10^3/uL (0.83-4.51); Absolute Neutrophil Count 4.2 X10^3/uL (2.0-7.7); Basophil# 0.06 X10^3/uL; Basophil% 0.7 % (0-1); Eosinophil# 1.46 X10^3/uL; Eosinophils% 17.7 % (0-5); Hematocrit 32.3 % (37-47); Hemoglobin 10.2 g/dL (12.0-15.0); Lymphocyte # 1.97 X10^3/ul (0.83-4.51); Lymphocyte % 23.9 % (19-41); Mean Corp Hgb Conc 31.6 g/dL (32-36); Mean Corpuscular Hgb 25.8 pg (27.0-32.0); Mean Corpuscular Volume 81.6 fL (81-99); Mean Platelet Vol. 11.5 fl (6.2-12.0); Monocyte# 0.52 X10^3/uL; Monocyte% 6.3 % (0-10); NRBC Flagged by Analyzer 0 % (0-5); Neutrophil # 4.22 X10^3/uL (2.7-7.7); Neutrophil % 51.2 % (47-70); Platelet Count 312 K/mm3 (150-450); RBC Distribution Width CV 14.9 % (11.6-14.6); RBC Distribution Width SD 44.1 fl (35.1-43.9); Red Blood Count 3.96 M/mm3 (4.2-5.4); White Blood Count 8.3 K/mm3 (4.4-11.0)
[2021-08-22 11:30] LABS: ALB/GLOB Ratio 0.9 RATIO (0.9-2.4); AST(SGOT) 13 U/L (15-37); Alanine Aminotransfer ALT/SGPT 14 U/L (13-56); Alkaline Phosphatase 120 U/L (45-117); Anion Gap 6 (5-15); BUN 9 mg/dL (7-18); Calcium,Total 9.2 mg/dL (8.5-10.1); Chloride 107 mmol/L (98-107); EST Glomerular Filtration Rate 66 mL/min (>60); Est Glom Filt Rate - Afr Amer 79 mL/min (>60); Globulin 3.2 g/dL (2.2-4.2); Glucose 111 mg/dL (74-106); Potassium 3.9 mmol/L (3.5-5.1); Protein, Total 6.2 g/dL (6.4-8.2); Sodium Level 140 mmol/L (136-145); Vancomycin, Trough Level 11.4 ug/mL (5.0-15.0)
== END ==
PROVIDERS: PCP Internal Medicine
DX: M46.44 Discitis, unspecified, thoracic region (principal); M47.816 Spondylosis without myelopathy or radiculopathy, lumbar region
CPT/HCPCS: 80053; 80202; 85025

== ENCOUNTER → 2021-08-26 | Outpatient (CLI) | payer MEDICARE, BC, SELFPAY ==
[2021-08-25 13:20] LABS: Vancomycin, Trough Level 11.8 ug/mL (5.0-15.0)
== END | disposition home or self-care (01) ==
LOC: LABSPEC 07:22
PROVIDERS: PCP Internal Medicine
DX: M46.25 Osteomyelitis of vertebra, thoracolumbar region (principal); M46.45 Discitis, unspecified, thoracolumbar region
CPT/HCPCS: 80202

== ENCOUNTER → 2021-08-29 10:41 | Outpatient (CLI) | payer MEDICARE, BC, SELFPAY ==
[2021-08-29 11:03] LABS: Absolute Lymphocyte Count 1.78 X10^3/uL (0.83-4.51); Basophil# 0.06 X10^3/uL; Basophil% 0.8 % (0-1); Eosinophil# 1.52 X10^3/uL; Eosinophils% 19.5 % (0-5); Hemoglobin 10.1 g/dL (12.0-15.0); Lymphocyte # 1.78 X10^3/ul (0.83-4.51); Lymphocyte % 22.9 % (19-41); Mean Corp Hgb Conc 32.6 g/dL (32-36); Mean Corpuscular Hgb 26.4 pg (27.0-32.0); Mean Corpuscular Volume 81.2 fL (81-99); Mean Platelet Vol. 11.9 fl (6.2-12.0); Monocyte# 0.46 X10^3/uL; Monocyte% 5.9 % (0-10); NRBC Flagged by Analyzer 0 % (0-5); Neutrophil # 3.95 X10^3/uL (2.7-7.7); Neutrophil % 50.8 % (47-70); Platelet Count 292 K/mm3 (150-450); RBC Distribution Width SD 43.9 fl (35.1-43.9); Red Blood Count 3.82 M/mm3 (4.2-5.4); White Blood Count 7.8 K/mm3 (4.4-11.0)
[2021-08-29 11:18] LABS: ALB/GLOB Ratio 0.9 RATIO (0.9-2.4); AST(SGOT) 13 U/L (15-37); Alanine Aminotransfer ALT/SGPT 14 U/L (13-56); Alkaline Phosphatase 116 U/L (45-117); Anion Gap 8 (5-15); BUN 9 mg/dL (7-18); BUN/Creat Ratio 10.5 RATIO (10-20); Calcium,Total 9.2 mg/dL (8.5-10.1); Chloride 105 mmol/L (98-107); Creatinine, Serum 0.86 mg/dL (0.55-1.02); EST Glomerular Filtration Rate 69 mL/min (>60); Est Glom Filt Rate - Afr Amer 83 mL/min (>60); Globulin 3.4 g/dL (2.2-4.2); Glucose 95 mg/dL (74-106); Potassium 3.8 mmol/L (3.5-5.1); Protein, Total 6.4 g/dL (6.4-8.2); Sodium Level 140 mmol/L (136-145)
[2021-08-29 11:19] LABS: Vancomycin, Trough Level 14.4 ug/mL (5.0-15.0)
== END ==
PROVIDERS: PCP Internal Medicine
DX: M46.44 Discitis, unspecified, thoracic region (principal); M47.816 Spondylosis without myelopathy or radiculopathy, lumbar region
CPT/HCPCS: 80053; 80202; 85025

== ENCOUNTER → 2021-09-05 12:01 | Outpatient (CLI) | payer MEDICARE, BC, SELFPAY ==
[2021-09-05 12:42] LABS: Absolute Lymphocyte Count 1.78 X10^3/uL (0.83-4.51); Absolute Neutrophil Count 3.3 X10^3/uL (2.0-7.7); Basophil# 0.08 X10^3/uL; Basophil% 1.2 % (0-1); Eosinophil# 1.04 X10^3/uL; Eosinophils% 15.7 % (0-5); Hematocrit 32.8 % (37-47); Hemoglobin 10.6 g/dL (12.0-15.0); Lymphocyte # 1.78 X10^3/ul (0.83-4.51); Lymphocyte % 26.9 % (19-41); Mean Corp Hgb Conc 32.3 g/dL (32-36); Mean Corpuscular Hgb 26.1 pg (27.0-32.0); Mean Corpuscular Volume 80.8 fL (81-99); Mean Platelet Vol. 12.1 fl (6.2-12.0); Monocyte% 6.1 % (0-10); NRBC Flagged by Analyzer 0 % (0-5); Neutrophil % 49.9 % (47-70); Platelet Count 281 K/mm3 (150-450); RBC Distribution Width CV 15.3 % (11.6-14.6); RBC Distribution Width SD 44.2 fl (35.1-43.9); Red Blood Count 4.06 M/mm3 (4.2-5.4); White Blood Count 6.6 K/mm3 (4.4-11.0)
[2021-09-05 13:03] LABS: Vancomycin, Trough Level 12.6 ug/mL (5.0-15.0)
[2021-09-05 13:10] LABS: AST(SGOT) 14 U/L (15-37); Alanine Aminotransfer ALT/SGPT 16 U/L (13-56); Albumin, Serum 3.2 g/dL (3.2-5.0); Alkaline Phosphatase 110 U/L (45-117); Anion Gap 11 (5-15); BUN 8 mg/dL (7-18); BUN/Creat Ratio 9.7 RATIO (10-20); Chloride 107 mmol/L (98-107); Creatinine, Serum 0.82 mg/dL (0.55-1.02); EST Glomerular Filtration Rate 72 mL/min (>60); Est Glom Filt Rate - Afr Amer 87 mL/min (>60); Globulin 3.1 g/dL (2.2-4.2); Glucose 84 mg/dL (74-106); Potassium 3.8 mmol/L (3.5-5.1); Protein, Total 6.3 g/dL (6.4-8.2); Sodium Level 145 mmol/L (136-145)
== END ==
PROVIDERS: PCP Internal Medicine
DX: M46.44 Discitis, unspecified, thoracic region (principal); M47.816 Spondylosis without myelopathy or radiculopathy, lumbar region
CPT/HCPCS: 80053; 80202; 85025

== ENCOUNTER → 2022-03-06 | Outpatient (CLI) | payer MEDICARE, BC, SELFPAY | END | disposition home or self-care (01) | PROVIDERS: PCP Internal Medicine; Visit Provider Student in an Organized Health Care Education/Training Program | DX: N77.1 Vaginitis, vulvitis and vulvovaginitis in diseases classified elsewhere (principal) ==

== ENCOUNTER → 2022-12-14 | Outpatient (CLI) | payer MEDICARE, BC, SELFPAY ==
--- NOTE | 2022-12-14 15:51 | BI_ITS ---
MAMMOGRAPHY - BILATERAL SCREENING 3-D TOMOSYNTHESIS REASON FOR EXAM: Female, 72 years old. Routine screening PERTINENT HISTORY: Grandmother and aunt with breast cancer.. TECHNIQUE: 2-D mammograms and 3-D Tomosynthesis of the breast (s) were performed. CAD was performed. COMPARISON: 07/24/2019 FINDINGS: The breast composition is composed of scattered fibroglandular density. Scattered benign calcifications are seen. No dense spiculated masses or suspicious microcalcifications are identified. No architectural distortion is identified. There is no skin thickening or retraction. There has been no significant change since the prior study. BI/SCRN MAMM (CAD)W/TANNER BILAT IMPRESSION: No mammographic signs of malignancy. Routine yearly mammograms recommended. ASSESSMENT CATEGORY: BIRADS Category 2: Benign. A letter regarding these results will be sent to the patient by the facility within 30 days. FOLLOW UP RECOMMENDATION: Yearly follow up mammogram recommended. (A) Approximately 10% of breast cancers are not detected by mammography. A normal mammogram should not delay biopsy of a clinically suspicious abnormality. Electronically Signed: Kory Chandler MD at 7:51 EDT ,
--- NOTE | 2022-12-14 16:08 | BD_ITS ---
STUDY: DUAL ENERGY X-RAY ABSORPTIOMETRY / DXA REASON FOR EXAM: Female, 72 years old. N95.9 TECHNIQUE: Bone Mineral Density (BMD) measurements of lumbar spine and bilateral hips were obtained. COMPARISON: Comparison is made with prior study dated September 16, 2020. FINDINGS: Lumbar Spine (L1-L4): g/cm2 (0.936) / T-score (-1.0) / Z-score (1.4) Findings are suggestive of normal bone density with a low fracture risk. Left Femur Total: g/cm2 (0.733) / T-score (-1.7) / Z-score (0.0) Left Femoral Neck: g/cm2 (0.598) / T-score (-2.3) / Z-score (-0.2) Right Femur Total: g/cm2 (0.793) / T-score (-1.2) / Z-score (0.5) Right Femoral Neck: g/cm2 (0.578) / T-score (-2.4) / Z-score (-0.4) The T-Scores on the most recent prior examination were: Lumbar Spine (L1-L4): There has been worsening of bone density since the previous examination. Left Femur Total: which represents a worsening of 21.8%. Right Femur Total: which represents a worsening of 16.7%. BD/Dexa Bone Density Study IMPRESSION: The patient is considered osteopenic as outlined below according to World Gonzalez Organization (WHO) criteria with a high fracture risk. There has been worsening of bone density since the previous examination. Reference Information: The T-score is the number of standard deviations above or below the standard which is normal for young adults at their peak bone mineral density. The World Health Organization (WHO) interprets the T-scores as follows: Above -1 Normal bone density Between -1 and -2.5 Osteopenia Equal to / or below -2.5 Osteoporosis As a practical clinical guideline, osteopenia may be graded as follows: Mild -1 through -1.5 Moderate -1.6 through -2.0 Severe -2.1 through -2.4 The Z-score is the number of standard deviations above or below age-matched controls. A Z-score of less than -1.5 would be considered abnormal. References: 1. NIH Osteoporosis and Related Bone Diseases www osteo.org 2. International Society for Clinical Densitometry www iscd.org 3. National Osteoporosis Foundation www nof.org Electronically Signed: Tomer Boone MD at 9:47 EDT ,
== END | disposition home or self-care (01) ==
LOC: OPBI 15:46
PROVIDERS: PCP Internal Medicine; Visit Provider Student in an Organized Health Care Education/Training Program
DX: Z12.31 Encounter for screening mammogram for malignant neoplasm of breast (principal); N95.1 Menopausal and female climacteric states; M81.0 Age-related osteoporosis without current pathological fracture
CPT/HCPCS: 77063; 77067; 77080

== ENCOUNTER 2023-01-03 13:59 | Outpatient (CLI) | payer MEDICARE, BC, SELFPAY ==
[2023-01-05 15:27] LABS: Cancer Antigen 125 8.2 U/mL (0.0-38.1); Carbohydrate AG 19-9 19 U/mL (0-35); Carcinoembryonic Antigen 1.2 ng/mL (0.0-4.7)
== END 2023-01-03 23:59 | disposition home or self-care (01) ==
LOC: WOBLAB 14:02
PROVIDERS: PCP Internal Medicine; Visit Provider Nurse Practitioner Women's Health
DX: R10.2 Pelvic and perineal pain (principal)
CPT/HCPCS: 36415; 82378; 86301; 86304

== ENCOUNTER → 2023-01-25 | Outpatient (CLI) | payer MEDICARE, BC, SELFPAY ==
--- NOTE | 2023-01-25 16:46 | CT_ITS ---
STUDY: CT ABDOMEN AND PELVIS WITH CONTRAST REASON FOR EXAM: Female, 72 years old. PELVIC AND PERINEAL PAIN RADIATION DOSAGE (If Supplied By Facility): CTDIvol = ( 19.64 ) mGy, DLP = ( 884.01 ) mGycm TECHNIQUE: Transaxial images were obtained from the dome of the diaphragm to the symphysis pubis with oral contrast. Oral and amp; IV Readi-CAT and amp; 100mL Isovue-370 was administered. Sagittal and coronal images were reconstructed. Individualized dose optimization techniques were used for this CT. COMPARISON: None. FINDINGS: The visualized lung bases are unremarkable. Coronary artery calcification. There is a 1 cm cyst in the anterior superior aspect of the right lobe of the liver. There are surgical clips in the gallbladder fossa consistent with a prior cholecystectomy. Normal spleen. Normal pancreas. Normal bilateral adrenal glands. Normal right kidney. Normal left kidney. There is a small hiatal hernia. Normal small intestine. There are scattered colonic diverticula consistent with diverticulosis. The appendix is visualized and appears normal. There is scattered atherosclerotic calcification of the abdominal aorta, without a demonstrated aneurysm. Normal inferior vena cava. Normal retroperitoneum. Normal urinary bladder. Normal abdominal wall. This space narrowing and spondylosis with subchondral sclerosis at the T12-L1 level. CT/Abdomen/Pelvis WITH Contrast IMPRESSION: Sigmoid diverticulosis. The patient is status post cholecystectomy. 1 cm cyst in the dome of the right lobe of the liver. Electronically Signed: Tomer Boone MD at 13:20 EDT ,
[2023-01-25 17:15] LABS: CREATININE FINGERSTICK 1.2 mg/dL (0.55-1.02)
== END | disposition home or self-care (01) ==
LOC: CT 16:44
PROVIDERS: PCP Internal Medicine; Referring Provider Student in an Organized Health Care Education/Training Program; Visit Provider Student in an Organized Health Care Education/Training Program
DX: R10.2 Pelvic and perineal pain (principal)
CPT/HCPCS: 74177; Q9967

== ENCOUNTER → 2023-01-30 | Outpatient (CLI) | payer MEDICARE, BC, SELFPAY ==
[2023-02-07 12:08] LABS: HPV APTIMA, High Risk Negative (Negative)
== END | disposition home or self-care (01) ==
LOC: LABSPEC 16:31
PROVIDERS: PCP Internal Medicine; Visit Provider Student in an Organized Health Care Education/Training Program
DX: Z12.4 Encounter for screening for malignant neoplasm of cervix (principal)
CPT/HCPCS: 87624; 88175; G0145

== ENCOUNTER → 2023-02-13 | Outpatient (CLI) | payer MEDICARE, BC, SELFPAY ==
--- NOTE | 2023-02-13 | VUL_PTH ---
PATIENT: CRISTOBAL MCCLAIN LOC: [facility] U#:[id number] AGE/SX: 72/F ROOM: RE02/13/[address]: Dr. Meredith Leyva DO : [id number] BED: DIS: 02/13/2023 SPEC #: [id number] RECD: 02/13/23 16:14 STATUS: SANDRA TANGDyllan #: [id number] [place]: 02/13/23 00:[address]: Meredith Leyva DEPT: SURGICAL PATHOLOGY RECD BY: Veronica Bradley ENTERED: 02/14/23 08:57 SP TYPE: VULVA BX OTHR DR: Dr. Zane Knutson MD Tissues: Vulva, NOS Procedures: Surgery Specimen Level IV HEADER OPERATION: Vulvar biopsy PRE-OP DIAGNOSIS: Vulvar pruritus TISSUE SUBMITTED: Vulvar biopsy MICROSCOPIC DIAGNOSIS Vulvar biopsy: Fragments of skin with hyperkeratosis. Negative for dysplasia. SJ:daphney 02/15/2023 MICROSCOPIC DESCRIPTION Slides are reviewed. GROSS DESCRIPTION Received is one container labeled with the patient's name and not further designated. The specimen consists of multiple irregular fragments of brown skin measuring that in aggregate measure 0.5 x 0.2 x 0.1 cm. The specimen is totally submitted in one cassette. / SJ:daphney 02/14/2023 TC:5 CPT: 69935
== END | disposition home or self-care (01) ==
LOC: LABSPEC 14:15
PROVIDERS: PCP Internal Medicine; Visit Provider Student in an Organized Health Care Education/Training Program
DX: L29.2 Pruritus vulvae (principal)
CPT/HCPCS: 88305

== ENCOUNTER 2024-01-18 09:56 | Day surgery (SDC) | payer MEDICARE, BC, SELFPAY ==
--- NOTE | 2024-01-15 09:55 | EKG12_ITS ---
Test Reason : PREOP Blood Pressure : / mmHG Vent. Rate : 075 BPM Atrial Rate : 075 BPM P-R Int : 134 ms QRS Dur : 092 ms QT Int : 398 ms P-R-T Axes : 068 089 083 degrees QTc Int : 444 ms Normal sinus rhythm Normal ECG Confirmed by CHANTEL NAYLOR, GERTRUDIS ([id number]), editorial clerk MARIN PARKER ([id number]) on 01/16/2024 6:49:27 AM Referred By: Jessa Maldonado Confirmed By:GERTRUDIS GOLDEN MD
[2024-01-15 10:31] LABS: Hematocrit 39.1 % (37-47); Hemoglobin 12.5 g/dL (12.0-15.0); Mean Corpuscular Hgb 27.1 pg (27.0-32.0); Mean Corpuscular Volume 84.6 fL (81-99); Mean Platelet Vol. 10.2 fl (6.2-12.0); Platelet Count 335 K/mm3 (150-450); RBC Distribution Width CV 17.2 % (11.6-14.6); RBC Distribution Width SD 53.2 fl (35.1-43.9); Red Blood Count 4.62 M/mm3 (4.2-5.4)
[2024-01-15 10:52] LABS: Anion Gap 4 (5-15); BUN 21 mg/dL (7-18); BUN/Creat Ratio 17.8 RATIO (10-20); Calcium,Total 8.9 mg/dL (8.5-10.1); Chloride 110 mmol/L (98-107); Creatinine, Serum 1.18 mg/dL (0.55-1.02); EST Glomerular Filtration Rate 47 mL/min (>60); Est Glom Filt Rate - Afr Amer 57 mL/min (>60); Glucose 115 mg/dL (74-106); Potassium 4.4 mmol/L (3.5-5.1); Sodium Level 141 mmol/L (136-145)
--- NOTE | 2024-01-18 | EMB_PTH ---
PATIENT: CRISTOBAL MCCLAIN LOC: [facility] [place] U#:[id number] AGE/SX: 73/F ROOM: RE01/18/[address]: Dr. Jessa Maldonado DO : 1950 BED: DIS: 01/18/2024 SPEC #: [id number] RECD: 01/18/24 13:55 STATUS: SANDRA TANGDyllan #: [id number] [place]: 01/18/24 00:[address]: Jessa Maldonado DEPT: SURGICAL PATHOLOGY RECD BY: Karel Broderick ENTERED: 01/21/24 10:21 SP TYPE: ENDOM BX/C [place] DR: Dr. Zane Knutson MD Tissues: Endometrium, NOS Procedures: Surgery Specimen Level IV HEADER OPERATION: Hysteroscopy, D&C, polypectomy, Symphion PRE-OP DIAGNOSIS: Endometrial polyp TISSUE SUBMITTED: Endometrial polyp MICROSCOPIC DIAGNOSIS Endometrial polyp, D&C: A few fragments of benign superficial endometrial tissue, myometrium and ectocervical epithelium. See comment. / 01/22/2024 COMMENT Clinical correlation and appropriate follow up are necessary. MICROSCOPIC DESCRIPTION Slides are reviewed. GROSS DESCRIPTION Received in fixative is one container labeled with the patient's name and designated Endometrial polyp. The specimen consists of a few fragments of matias soft tissue mixed with brownish black tissue measuring in aggregate 0.5 x 0.3 x 0.1cm. The entire specimen is submitted in one cassette./ 01/21/2024 TC:5 CPT:33104
[2024-01-18 10:20] VITALS: BP 111/76; PULSE 68; RESP 16; TEMP 36.7; O2SAT 96; BMI 30.6
[2024-01-18] MEDS: Lactated Ringers 1,000 ML 15 ML IV (10:43)
[2024-01-18 10:49] LABS: Bedside Glucose 102 mg/dL (74-106)
[2024-01-18] MEDS: Lidocaine 1% /Epi 1:100 (20ml) 20 ML Vial (11:02)
--- NOTE | 2024-01-18 12:00 | DCINST_ITS ---
Discharge Instructions Diet Discharge Diet: No restrictions Activity Discharge Activity: May Drive (Once you are more than 24 hours out from surgery) and May Shower (Once you are more than 24 hours out from surgery) May resume sexual activity in: 1 week (Nothing in the vagina and no soaking in water while you have the vaginal bleeding) Weight Bearing Status: Weight bearing as tolerated Lifting Restrictions: No restrictions Dressing / Incision Call your doctor if you observe: Fever of 101 or Higher, Coldness, Increased Pain, Numbness or Tingling, Change in Color, Inability to urinate, Inability to have a bowel movement, Using more than 1 pad per hour, Shortness of breath, Dizziness, Fainting spells, Swelling in the ankles, Chest pain, Prolonged hi ccupping, Increased palpitations (irregular heartbeat), Calf discomfort and Uncontrolled pain Follow Up Care Please Follow Up With: Jessa Maldonado DO When: 1-2 week for a post operative visit and to discuss pathology Test Results: Test results from this visit will be discussed in further detail at your follow- up appointment, if applicable. Discharge Plan Admission Primary Reason for Your Visit: Surgery Attending Provider: Jessa Maldonado Primary Care Provider: Zane Knutson Instructions Patient Instructions: Hysteroscopy Discharge Orders/Prescriptions Prescriptions: Continued atorvastatin 10 mg tablet 10 mg PO DAILY cetirizine 10 mg tablet 10 mg PO QHS ergocalciferol (vitamin D2) 1,250 mcg (50,000 unit) capsule 1,250 mcg PO WE Rx Instructions: TAKES EVERY OTHER SUNDAY oxycodone-acetaminophen 7.5-325 mg tablet 1 tab PO BID PRN PRN (Reason: pain) Patient Comments: PLEASE SEE ATTACHED FOR DETAILED DIRECTIONS amlodipine 10 mg tablet 10 mg PO QHS Probiotic Acidophilus 250 million cell capsule 500 mmu cells PO DAILY carvedilol 12.5 mg tablet 12.5 mg PO BID cranberry 1,000 mg capsule 1,000 mg PO DAILY Rx Instructions: administer with a meal Ozempic 1 mg/dose (4 mg/3 mL) pen injector 1 mg subcut SA metformin 500 mg tablet 500 mg PO BID magnesium oxide 400 mg (241.3 mg magnesium) tablet 400 mg PO DAILY gabapentin 300 mg capsule 300 mg PO 1700 lansoprazole 30 mg capsule,delayed release(DR/EC) 30 mg PO BID cyanocobalamin (vitamin B-12) 1,000 mcg/mL solution 1,000 mcg IM TU Rx Instructions: EVERY OTHER SUNDAY calcium carbonate-vitamin D3 500 mg-3.125 mcg (125 unit) tablet 2 tab PO DAILY levothyroxine 75 mcg tablet 75 mcg PO DAILY venlafaxine 75 mg capsule,extended release 24hr 75 mg PO QPM trimethoprim 100 mg tablet 100 mg PO QHS estradiol 0.01 % (0.1 mg/gram) cream 1 applic vaginal SUTH Referrals / Follow Up: Zane Knutson MD [Primary Care Provider] - Disposition Disposition (needs filled in before D/C Order can be placed): Home, Self Care
--- NOTE | 2024-01-18 12:01 | PCM.OPRPT ---
Problems Associated Problem List Diagnoses (1) Endometrial polyp: (2) Fluid in endometrial cavity: Report of Operation Date of Procedure: 01/18/24 Pre-Operative Diagnosis: Endometrial fluid on pelvic ultrasound, endometrial polyp on EMB Post-Operative Diagnosis: As above Surgery/Procedure Performed:: Hysteroscopy, polypectomy with Symphion, D&C performed with the Symphion Description of Surgical Findings:: Stenotic cervix. Good descent of the uterus and cervix. Two very small endometrial polyps noted along left uterine side wall in the lower uterine segment. Uterine cavity was otherwise normal appearing. Endometrium was atrophic appearing. Surgeon: Jessa Maldonado Type of Anesthesia: MAC Special Medications: None Specimen's removed: Endometrial polyp and curettings Drains: None Estimated Blood Loss (mL): < 10 Fluids Replaced: 500 Description of Procedure: The patient was taken to the operating room where MAC anesthesia was induced. She was prepped and draped in the dorsal lithotomy position using yellow fin stirrups. A weighted speculum was placed in the vagina to expose the cervix. The anterior lip of the cervix was grasped with a single-tooth tenaculum. Atrophy and a stenotic cervix were noted. 10 cc of 1% lidocaine with epinephrine was injected circumferentially in the cervix. The cervix was serially dilated and stenosis was again noted. The Symphion hysteroscope was advanced into the endocervical canal and a false tract was noted anterior to the endocervical canal. The end of the false tract was noted, and no perforation or bleeding was noted. The Symphion hysteroscope was then directed away from the false track, and hydrodilation was used to dilate the remaining endocervical canal to enter the uterine cavity. The uterine cavity was distended with normal saline as distention media. Bilateral tubal ostia were visualized. The endometrium was atrophic appearing. 2 small pieces of polypoid tissue were noted along the left sidewall of the uterus. Pictures were taken. The Symphion resection device was used to remove the polypoid tissue and perform a hysteroscopic directed D&C. The pathology was sent for review. The Symphion hysteroscope was removed. Bleeding was hemostatic. All instruments were removed from the vagina. A vaginal sweep was performed. Instrument and sponge counts were correct. The patient was taken to the recovery in stable condition. Grafts/Implants Used: None Procedure Start Time: 11:39 Procedure Stop Time: 11:57 Complications None Admit VTE Documentation VTE Present on Admission: No VTE Mechan Device Prophylaxis: SCD's
[2024-01-18 12:10] VITALS: BP 111/76; BP 112/81; PULSE 63; RESP 16; TEMP 37.1; O2SAT 100
[2024-01-18 12:15] VITALS: BP 111/76; BP 121/80; PULSE 66; RESP 16; O2SAT 100
[2024-01-18 12:20] VITALS: BP 111/76; BP 131/70; PULSE 68; RESP 16; O2SAT 97
[2024-01-18 12:30] VITALS: BP 111/76; BP 129/70; PULSE 66; RESP 16; TEMP 36.7; O2SAT 94
[2024-01-18 12:59] VITALS: BP 111/76
== END 2024-01-18 13:10 | disposition home or self-care (01) ==
LOC: SDC 09:57 → AC 09:57
PROVIDERS: PCP Internal Medicine; Referring Provider Obstetrics & Gynecology; Visit Provider Obstetrics & Gynecology
PROC: 0UB98ZZ Excision of Uterus, Via Natural or Artificial Opening Endoscopic (ICD-10-PCS; CPT 58558; principal; 2024-01-18 11:10)
DX: N84.0 Polyp of corpus uteri (principal); E11.9 Type 2 diabetes mellitus without complications; N88.2 Stricture and stenosis of cervix uteri; K21.00 Gastro-esophageal reflux disease with esophagitis, without bleeding; Z79.899 Other long term (current) drug therapy; Z79.85 Long-term (current) use of injectable non-insulin antidiabetic drugs; Z79.890 Hormone replacement therapy; E78.00 Pure hypercholesterolemia, unspecified; I10 Essential (primary) hypertension
CPT/HCPCS: 58558; 00952; 36415; 80048; 82962; 85027; 86850; 86900; 86901; 88305; 93005; J7120; J2405

== ENCOUNTER → 2025-02-10 | Outpatient (CLI) | payer MEDICARE, BC, SELFPAY ==
--- NOTE | 2025-02-10 08:49 | BD_ITS ---
PROCEDURE: DEXA BONE DENSITY STUDY 02/10/2025 REASON FOR EXAM: F, age 74 y/o . Postmenopausal. TECHNIQUE: DXA scan of sites with data reported below. [facility]KS[facility] COMPARISON: Prior study dated December 14, 2022. FINDINGS: BMD and T-SCORES Lumbar spine: 0.943 g/cm2, T-score -1.2 Levels: L1 through L4 Change from prior: Improvement by 1.4%. Left femoral neck: 0.720 g/cm2, T-score -1.2 Femoral neck comparison data not recommended for monitoring change. Left total hip: 0.840 g/cm2, T-score -0.8 Change from prior: Improvement by 14.5%. Right femoral neck: g/cm2, T-score Femoral neck comparison data not recommended for monitoring change. Prior T-score Right total hip: 0.668 g/cm2, T-score -1.6 Improvement by 8.9% The World Health Organization has defined the following categories based on bone density: Normal bone density: T-score equal to or greater than -1.0 Osteopenia: T-score between -1.0 and -2.5 Osteoporosis: T-score equal to or less than -2.5 The patient does meet the pharmacological treatment recommendations for prevention of osteoporosis. BD/Dexa Bone Density Study IMPRESSION: OSTEOPENIA. Recommend follow-up as clinically warranted. Reading Location: [id number]
== END | disposition home or self-care (01) ==
LOC: OPBD 08:41
PROVIDERS: PCP Internal Medicine
DX: M81.0 Age-related osteoporosis without current pathological fracture (principal)
CPT/HCPCS: 77080